=== PATIENT | female | born 1950 | race Caucasian/White ===

== ENCOUNTER → 2016-04-03 | Day surgery (SDC) | payer MEDICARE, OTHER ==
[2016-04-03] VITALS (12 sets, daily range): BP systolic 113–143; BP diastolic 57–80
[~2016-04-03] VITALS: Ht 152.4 cm; Wt 43.1 kg
[~2016-04-03] MED LIST: DiphenhydrAMINE 50mg/ml Inj IVP PRN; Ketorolac 30mg Inj ONE; LR 1000ml 1,000 ML IVLG SCH; LR 1000ml ONE; Midazolam 2mg/2ml Inj ONE; NS Irrig 1000ml IRRIG ONE; Propofol 10mg/ml 20ml IV ONE; Ropivacaine 5mg/ml Vial 20ml INJ ONE; Sterile Water Irrig 1000ml IRRIG ONE; ZYRTEC10 MG ORAL; cefOXitin 1gm Inj ONE; cefOXitin Sod 1 GM in D5W 55 ML IVPB ONE; fentaNYL 100 mcg/2 mL IV ONE; fentaNYL 100 mcg/2 mL IV PRN
--- NOTE | 2016-04-03 09:23 | Pre-Procedure Note/Attestation ---
Pre-Procedure Note/Attestation Complete Prior to Procedure Planned Procedure: not applicable Indications for Procedure Pre-Operative Diagnosis: endometrial polyp and fluid in the endometrial canal , vag spotting Attestation I attest that I discussed the nature of the procedure; its benefits; risks and complications; and alternatives (and the risks and benefits of such alternatives ), prior to the procedure, with the patient (or the patient's legal counter sales representative). I attest that, if there was a reasonable possibility of needing a blood transfusion, the patient (or the patient's legal counter sales representative) was given the [facility] standardized written summary, pursuant to the [place] [place] Blood Safety Act ([place] Health and Safety Code # 1645, as amended). I attest that I re-evaluated the patient just prior to the surgery and that there has been no change in the patient's H&P, except as documented below: CHANNING MOONEY Apr 03, 2016 09:23
--- NOTE | 2016-04-03 10:03 | Anethesia Preoperative Eval ---
Anesthesia Pre-op PMH/ROS General Date of Evaluation: Apr 03, 2016 Time of Evaluation: 09:20 Anesthesiologist: Ara ASA Score: ASA 2 Mallampati Score Class I : Soft palate, uvula, fauces, pillars visible Class II: Soft palate, uvula, fauces visible Class III: Soft palate, base of uvula visible Class IV: Only hard plate visible Mallampati Classification: Class II Surgeon: Isauro Diagnosis: Intra uterine polyp Surgical Procedure: D&C Hysteroscopy Anesthesia History: none Family History: no anesthesia problems Allergies: Coded Allergies: No Known Allergies (Unverified , 04/02/16) Medications: see eMAR Past Medical History Cardiovascular: Denies: CAD, HTN, [place], arrhythmia, other, valve dz Pulmonary: Denies: COPD, OZZY, asthma, other Gastrointestinal/Genitourinary: Reports: GERD - mid, Denies: CRI, ESRD, other Neurologic/Psychiatric: Reports: other - 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 Exam Physician Exam Last Vital Signs Date Time Temp Pulse Resp B/P Pulse Ox O2 Delivery O2 Flow Rate FiO2 04/03/16 08:01 96.8 68 20 133/59 99 Room Air Constitutional: NAD Neurologic: CN 2-12 intact Cardiovascular: RRR, no M/R/G Respiratory: CTA Gastrointestinal: S/NT/ND Airway Exam Mallampati Score: Class II MO: full Neck: flexible ROM: full Teeth: intact Dentures: no lower, no upper Anesthesia Pre-op A/P Labs see chart Studies Pre-op Studies: EKG - NSR Risk Assessment & Plan Assessment: ASA 2 Plan: GA with LA Pre-Antibiotics Drug: Cefoxitin 1 gr. Given Within 1 Hr of Incision: Yes Time Given: 09:54 OSKAR FERRER M.D. Apr 03, 2016 10:03
--- NOTE | 2016-04-03 10:18 | Brief Operative Note ---
Immediate Post Operative Note Operative Note Chief Complaint: PMB Pre-op Diagnosis: endometrial polyp and fluid in the endometrial canal , vag spotting Procedure: ECC, hysteroscopy , D&C Post-op Diagnosis: the same Surgeon: Channing Box MD Anesthesiologist: Dr García Anesthesia: general Specimen: yes Complications: none - ECC, EMC Estimated Blood Loss: minimal Drains: none Implant(s) used?: No CHANNING BOX Apr 03, 2016 10:18
--- NOTE | 2016-04-03 10:27 | Immediate Post-Op Evaluation ---
Immediate Post-Op Evalulation Immediate Post-Op Evalulation Procedure: D&C Hysteroscopy Date of Evaluation: Apr 03, 2016 Time of Evaluation: 10:25 IV Fluids: 800 Blood Products: none Estimated Blood Loss: min Urinary Output: none Blood Pressure Systolic: 112 Blood Pressure Diastolic: 56 Pulse Rate: 72 Respiratory Rate: 20 O2 Sat by Pulse Oximetry: 98 Temperature (Fahrenheit): 97.2 Pain Score (1-10): 1 Nausea: No Vomiting: No Complications none Patient Status: reacts, patent, none Hydration Status: adequate OSKAR FERRER M.D. Apr 03, 2016 10:26
--- NOTE | 2016-04-03 10:31 | 48 Hour Post Anesthesia Eval ---
Post Anesthesia Evaluation Procedure: D&C Hysteroscopy Date of Evaluation: Apr 03, 2016 Time of Evaluation: 11:15 Blood Pressure Systolic: 108 0: 74 Pulse Rate: 68 Respiratory Rate: 20 Temperature (Fahrenheit): 97.6 O2 Sat by Pulse Oximetry: 99 Airway: patent Nausea: No Vomiting: No Pain Intensity: 1 Hydration Status: adequate Cardiopulmonary Status: stable Mental Status/LOC: patient returned to baseline Follow-up Care/Observations: n/a Post-Anesthesia Complications: none Follow-up care needed: ready to discharge OSKAR FERRER M.D. Apr 03, 2016 10:31
--- NOTE | 2016-04-04 23:38 | Operative Note - Dictated ---
DATE OF OPERATION: 04/03/2016 SURGEON: Taisha Box M.D. SURGERY PERFORMED: 1. Hysteroscopy. 2. ECC and dilatation and curettage. COMPLICATIONS: None. ESTIMATED BLOOD LOSS: Minimal. ANESTHESIOLOGIST: Dr. Zia Bullock. OPERATIVE FINDINGS: 1. Normal uterine cavity. 2. ECC and dilatation and curettage done. OPERATIVE PROCEDURE: After signing the informed consent, the risks and benefits were discussed with the patient. The patient was taken to the operating room. The patient was prepped and draped in the usual sterile fashion. The patient was placed in the lithotomy position. After Bladder was emptied in and out, and then weighted speculum was placed in the vagina. A single-tooth tenaculum was placed in the cervix. Dilatation of the cervix was done. A 5 mm scope was introduced where cavity was surveyed and visualized. No abnormality was found. ECC was done. Dilatation and curettage was done. The patient tolerated the procedure. The patient's anesthesia was ended. All found correct at the end of the procedure. Lorraine Bhatti JOB#: [id number] CC: NIALL
== END | disposition home or self-care (01) ==
LOC: SUR 07:25
DX: N84.0 Polyp of corpus uteri (principal); N95.0 Postmenopausal bleeding; K21.9 Gastro-esophageal reflux disease without esophagitis; R56.9 Unspecified convulsions; D64.9 Anemia, unspecified; G91.9 Hydrocephalus, unspecified; Z98.2 Presence of cerebrospinal fluid drainage device
CPT/HCPCS: 58558; J0694; J1885; J2250; J2704; J3010; J7120; 94003; 94150